=== PATIENT | male | born 1960 ===

== ENCOUNTER 2024-06-02 05:00 | Outpatient (RCR) | payer BC, SELFPAY | END 2024-07-01 23:59 | disposition home or self-care (01) | LOC: MPT 05:00 | PROVIDERS: Visit Provider Neurological Surgery | DX: M50.30 Other cervical disc degeneration, unspecified cervical region (principal); M48.02 Spinal stenosis, cervical region | CPT/HCPCS: 97110; 97140; 97162 ==

== ENCOUNTER 2024-07-02 05:00 | Outpatient (RCR) | payer BC, SELFPAY | END 2024-08-01 23:55 | disposition home or self-care (01) | LOC: MPT 05:00 | PROVIDERS: Visit Provider Neurological Surgery | DX: M50.30 Other cervical disc degeneration, unspecified cervical region (principal); M48.02 Spinal stenosis, cervical region | CPT/HCPCS: 97110; 97140 ==

== ENCOUNTER 2024-08-02 06:30 | Outpatient (RCR) | payer BC, SELFPAY | END 2024-08-31 23:59 | disposition home or self-care (01) | LOC: MPT 06:30 | PROVIDERS: Visit Provider Neurological Surgery | DX: M50.30 Other cervical disc degeneration, unspecified cervical region (principal); M48.02 Spinal stenosis, cervical region | CPT/HCPCS: 97110; 97140 ==